=== PATIENT | female | born 1975 | race Two or more races ===

== ENCOUNTER 2024-04-20 13:30 | Outpatient (RCR) | payer MEDICAID, SELFPAY ==
--- NOTE | 2024-04-08 11:11 | PTNOTE_ITS ---
PT OP Initial Eval Patient Information Outpatient Physical Therapy Treatment Date: 04/08/24 Visit Reasons: cervical pain Medical Diagnosis: M54.12 Treatment Dx #1: neck pain Treatment Dx #2: B shoulder pain Start of Care: 04/08/24 Date of Onset: 1 yr ago Smoking Status Smoking Status: Never smoker Initial Assessment Subjective: Pt is 49 yr old afghan speaking female who reports neck and B shoudler pain x1 yr. Difficulty with finding comfortable sleeping positions. Increased pain with looking up/down and reaching UE's up to the side and sweeping. The neck feels stiff and limited with looking side to side. PMH: none reported Imaging: none of the neck Pt goal: to help reduce the pain and neck stiffness Objective: C/s ArOM; Flexion: 50% of full Extension: 10% of full Rotation: R: 50%, L: 10% B shoulder ArOM: FF: 120 deg Abd: 95 deg flexion-rotation test: positive L>R TTP: moderate of cervical paraspinals Assessment: Pt presents with very limited C/S ROM in all planes especially L rotation and extension consistent with either long Hx of not moving it or some congenital or ankylosing condition. Pt requires skilled therapy to reach goals and has poor/fair rehab potential. Pt would benefit from further diagnostic imaging of C/S. Short Term and Bioinformatician Goals 1. Ind with HEP 2. Improved Extension ROM to at least 30% of full, L rotation to 30% 3. Decreased TTP of C/S from mod to min 4. Pt will tolerate HH chores x30 mins with <=3/10 neck pain Treatment Plan ?1. Manual therapy ? 2. Therex ? 3. Modalities as indicated, moist heat, ice, estim Frequency and Duration: 1-2x a week for 12 visits. Pt will need more authorized visits to continue past 6 Certification Dates: 04/08/24 to 07/04/24 Procedure Charges OP PT Eval Mod Complex 30 minutes: Yes
--- NOTE | 2024-04-13 14:44 | PT.ODAYNRPT ---
PT Outpatient Daily Note OP Daily Note Outpatient Physical Therapy Treatment Date: 04/13/24 Visit Reasons: cervical pain Subjective: Same as eval Objective: See F/S for therex MT: StM L UT medial scapular border x7' Assessment: Good demo of levator scapula stretches today. Good response to manual therapy to decrease high myofascial tension of L UT region. Plan: Continue per POC Length of Time (minutes) of Treatment: 30 Minutes Procedure Charges Therapeutic Exercise 30 minutes: Yes
--- NOTE | 2024-04-15 12:18 | PT.ODAYNRPT ---
PT Outpatient Daily Note OP Daily Note Outpatient Physical Therapy Treatment Date: 04/15/24 Visit Reasons: cervical pain Subjective: Less neck and shoulder pain Objective: See F/S for therex MT: StM L UT medial scapular border x7' Assessment: Good demo of levator scapula stretches today. Good response to manual therapy to decrease high myofascial tension of L UT region. Plan: Continue per POC Length of Time (minutes) of Treatment: 30 Minutes Procedure Charges Therapeutic Exercise 30 minutes: Yes
--- NOTE | 2024-04-20 13:58 | PT.ODAYNRPT ---
PT Outpatient Daily Note OP Daily Note Outpatient Physical Therapy Treatment Date: 04/20/24 Visit Reasons: cervical pain Subjective: Less neck and shoulder pain Objective: See F/S for therex MT: StM L UT medial scapular border x7' Assessment: Pt tends to elevate shoulders with resisted theraband therex. Good demo of levator scapula stretches today. Slow response to manual therapy to decrease high myofascial tension of L UT region. Plan: Continue per POC Length of Time (minutes) of Treatment: 30 Minutes Procedure Charges Therapeutic Exercise 30 minutes: Yes
== END 2024-04-30 23:59 | disposition home or self-care (01) ==
LOC: CPTX 13:30
PROVIDERS: PCP Nurse Practitioner; Referring Provider Nurse Practitioner; Visit Provider Nurse Practitioner
DX: M54.12 Radiculopathy, cervical region (principal)
CPT/HCPCS: 97110; 97162